=== PATIENT | male | born 1980 | race Hispanic/Latino ===

== ENCOUNTER 2022-01-19 13:08 | Emergency (ER) | payer OTHER, SELFPAY ==
--- OUTSIDE RECORDS SUMMARY | 2022-01-19 13:10 | XMS REPORT | Continuity of Care Document ---
:1980 Author Organization [facility] t Address [address] [place] [address] Care Team Providers Name Role Phone Unknown, Attending Attending Clinician Unavailable Problems This patient has no known problems. Allergies, Adverse Reactions, Alerts This patient has no known allergies or adverse reactions. Social History Social Habit Start Date Stop Date Quantity Comments Source Sex Assigned At [facility] Smoking Status Start Date Stop Date Source Unknown if ever smoked [facility] Medications This patient has no known medications. Procedures This patient has no known procedures. Encounters Start End Encounter Admission Attending Care Care Encounter Source Date/Time Date/Time Type Type Clinicians Facility Department ID 2019-01-09 2019-01-09 Emergency Unknown, [facility] [id number] [facility] 22:32:19 22:59:00 Attending Paige [id number] [facility] [id number] [facility] [id number] [place] [id number] Branch Results This patient has no known results.
[2022-01-19 14:39] LABS: Absolute Lymphocytes (CBC) 0.6 K/uL (0.7-4.9); Hematocrit 49.9 % (39.6-49.0); Lymphocytes % 4.6 % (15.3-44.8); MPV 9.8 fL (7.6-11.3); RBC Red Blood Cell Count 5.73 M/uL (4.33-5.43)
[2022-01-19 14:51] LABS: Potassium 4.5 mmol/L (3.5-5.1)
[2022-01-19 15:23] LABS: Urine Blood Negative (Negative); Urine Glucose Negative (Negative); Urine Protein 2+ (Negative)
--- NOTE | 2022-01-19 15:54 | RAD REPORT ---
EXAM DESCRIPTION: RAD - Chest Single View - 01/19/2022 3:24 pm CLINICAL HISTORY: DYSPNEA COMPARISON: Two view chest 09/20/2016 TECHNIQUE: AP portable chest image was obtained 01/19/2022 3:24 pm . FINDINGS: Lungs are clear. Heart and vasculature are normal. No measurable pleural effusion and no p neumothorax. No acute bony abnormality seen. No acute aortic findings suspected. IMPRESSION: No acute cardiopulmonary process. No significant change from comparison study.
--- NOTE | 2022-01-19 16:54 | EDPHYS ---
Physician Documentation [facility] Name: Jae Covarrubias Age: 41 yrs Sex: Male : 1980 Arrival Date: 01/19/2022 Time: 13:09 Bed 18 Private MD: ED Physician Jasper Tovar HPI: 01/19 23:29 This 41 yrs old Male presents to ER via EMS with complaints of Heat Exposure. kb 23:29 The patient presents with dizziness, feeling faint. Onset: The symptoms/episode kb began/occurred just prior to arrival. Context: occurred outdoors, occurred while the patient was working, just prior to the episode the patient experienced no apparent symptoms. Modifying factors: The symptoms are alleviated by nothing, the symptoms are aggravated by nothing. Associated signs and symptoms: Pertinent positives: near-syncope, shortness of breath. Severity of symptoms: At their worst the symptoms were mild in the emergency department the symptoms are unchanged. Patient's baseline: Neuro: alert and fully oriented, Motor: no deficits, Ambulation: walks without assistance, Speech: normal. The patient has not experienced similar symptoms in the past. The patient has not recently seen a physician. Patient states he was outside working in got overheated. Started having dizziness and shortness of breath felt faint. Went inside to cool down EMS reports patient was pale upon their arrival but improved after rest cool environment and IV fluids.. Historical: - Allergies: 13:21 No Known Allergies; jg9 - PMHx: 13:21 Gout; jg9 - Immunization history:: Adult Immunizations not up to date. - Social history:: Smoking status: Patient reports the use of cigarette tobacco products, denies chronic smoking, but will smoke occasionally. ROS: 23:27 Constitutional: Negative for fever, chills, and weight loss. kb 23:27 Respiratory: Positive for shortness of breath, Negative for cough, dyspnea on exertion, hemoptysis, orthopnea, pleurisy, sputum production, wheezing. 23:27 Neuro: Positive for dizziness, near syncope. 23:27 All other systems are negative. Exam: 14:01 Constitutional: This is a well developed, well nourished patient who is awake, alert, kb and in no acute distress. Head/Face: Normocephalic, atraumatic. ENT: Moist Mucous membranes Cardiovascular: Regular rate and rhythm with a normal S1 and S2. No gallops, murmurs, or rubs. No pulse deficits. Respiratory: Respirations even and unlabored. No increased work of breathing. Talking in full sentences Abdomen/GI: Soft, non-tender. No distention Skin: Warm, dry with normal turgor. Normal color. MS/ Extremity: Pulses equal, no cyanosis. Neurovascular intact. Full, normal range of motion. Neuro: Awake and alert, GCS 15, oriented to person, place, time, and situation. Moves all extremities. Normal gait. Psych: Awake, alert, with orientation to person, place and time. Behavior, mood, and affect are within normal limits. 14:01 ECG was reviewed by the Attending Physician. Vital Signs: 13:05 BP 143 / 90; Pulse 94; Resp 17 S; Temp 98.8; Pulse Ox 97% ; Weight 95.25 kg; Height 6 jg9 ft. 1 in. (185.42 cm) (R); Pain 0/10; 14:00 BP 138 / 97; Pulse 100; Resp 17 S; Pulse Ox 96% ; jg9 15:00 BP 150 / 97; Pulse 99; Resp 16 S; Pulse Ox 97% on R/A; j9 16:00 BP 158 / 103; Pulse 99; Resp 17 S; Pulse Ox 96% ; j9 17:00 BP 155 / 95; Pulse 98; Resp 17 S; Pulse Ox 95% on R/A; jg9 13:05 Body Mass Index 27.71 (95.25 kg, 185.42 cm) 9 MDM: 13:30 Patient medically screened. kb 23:06 Data reviewed: vital signs, nurses notes. Data interpreted: Pulse oximetry: on room air kb is 95 %. Interpretation: normal. Counseling: I had a detailed discussion with the patient and/or guardian regarding: the historical points, exam findings, and any diagnostic results supporting the discharge/admit diagnosis, lab results, the need for outpatient follow up, a family practitioner, to return to the emergency department if symptoms worsen or persist or if there are any questions or concerns that arise at home. 23:27 ED course: Patient is feeling better after getting into cool environment, resting and kb receiving IV fluids.. 01/19 13:34 Order name: CBC with Diff; Complete Time: 14:53 kb 01/19 13:34 Order name: Basic Metabolic Panel; Complete Time: 14:53 kb 01/19 13:34 Order name: CPK; Complete Time: 14:53 kb 01/19 14:53 Order name: Chest Single View XRAY; Complete Time: 16:23 kb 01/19 14:54 Order name: COVID-19 SARS RT PCR (Document "Date of Onset" if Symptomatic); Complete kb Time: 16:27 01/19 15:23 Order name: Urine Dipstick-Ancillary; Complete Time: 15:24 EDMS 01/19 13:34 Order name: IV Start; Complete Time: 13:39 kb 01/19 13:34 Order name: Urine Dipstick-Ancillary (obtain specimen); Complete Time: 15:38 kb 01/19 13:39 Order name: EKG - Nurse/Tech; Complete Time: 13:39 jg9 EC:01 Rate is 103 beats/min. Rhythm is regular. Left axis deviation noted. NC interval is kb normal at 164 msec. QRS interval is normal at 86 msec. QT interval is normal at 437 msec. Administered Medications: 13:41 Drug: NS 0.9% 1000 ml Route: IV; Rate: 1000 ml; Site: right forearm; jg9 14:33 Follow up: IV Status: Completed infusion; IV Intake: 1000ml jg9 Disposition: 01/20 09:06 Co-signature as Attending Physician, Jasper Tovar MD I agree with the assessment and kdr plan of care. Disposition Summary: 01/19/22 16:53 Discharge Ordered Location: Home kb Condition: Stable kb Diagnosis - Exposure to excessive natural heat, initial encounter kb - Heat exhaustion, unspecified kb Followup: kb - With: Emergency Department - When: As needed - Reason: Worsening of condition Followup: kb - With: Private Physician - When: 2 - 3 days - Reason: Recheck today's complaints, Continuance of care, Re-evaluation by your physician Discharge Instructions: - Discharge Summary Sheet kb - Heat Exhaustion kb - Preventing Heat Exhaustion, Adult kb Forms: - Medication Reconciliation Form kb - Thank You Letter kb - Antibiotic Education kb - Prescription Opioid Use kb Signatures: Dispatcher [employer] EDAR Cindy May FNP-C FNP-Jasper Cerda MD MD kdr Gilmore, Jennifer, RN RN jg9 Corrections: (The following items were deleted from the chart) 01/19 23:29 23:27 Neuro: Positive for near syncope, kb kb
--- NOTE | 2022-01-19 16:54 | ER ---
Nurse's Notes [facility] Name: Jae Covarrubias Age: 41 yrs Sex: Male : 1980 Arrival Date: 01/19/2022 Time: 13:09 Bed 18 Private MD: Diagnosis: Exposure to excessive natural heat, initial encounter;Heat exhaustion, unspecified Presentation: 01/19 13:05 Chief complaint: EMS states: Patient at work on a [employer] lift when he started to feel jg9 dizzy so he was assisted off the lift and moved into and called EMS. EMS reports patient ws white as a ghost, patient reported sob prior to onset of symptoms. EMS gave 500 mL bolus-patient vs improved. Patient at ED reports he is feeling better. Coronavirus screen: Vaccine status: Patient reports being unvaccinated. Ebola Screen: Patient negative for fever greater than or equal to 101.5 degrees Fahrenheit, and additional compatible Ebola Virus Disease symptoms Patient denies exposure to infectious person. Patient denies travel to an Ebola-affected area in the 21 days before illness onset. Initial Sepsis Screen: Does the patient meet any 2 criteria? No. Patient's initial sepsis screen is negative. Does the patient have a suspected source of infection? No. Patient's initial sepsis screen is negative. Risk Assessment: Do you want to hurt yourself or someone else? Patient reports no desire to harm self or others. Onset of symptoms was January 19, 2022. 13:05 Method Of Arrival: EMS: [facility] jg9 13:05 Acuity: MICHELLE 3 jg9 Triage Assessment: 13:10 General: Appears distressed, uncomfortable, Behavior is calm, cooperative. Pain: Denies jg9 pain. Derm: Skin is intact, Skin is pale, Skin temperature is warm. Historical: - Allergies: 13:21 No Known Allergies; jg9 - PMHx: 13:21 Gout; jg9 - Immunization history:: Adult Immunizations not up to date. - Social history:: Smoking status: Patient reports the use of cigarette tobacco products, denies chronic smoking, but will smoke occasionally. Screenin:22 Abuse screen: Denies threats or abuse. Denies injuries from another. Nutritional jg9 screening: No deficits noted. Tuberculosis screening: No symptoms or risk factors identified. Fall Risk None identified. Assessment: 15:52 Reassessment: Patient and/or family updated on plan of care and expected duration. Pain jg9 level reassessed. Patient states feeling better. Patient states symptoms have improved. Vital Signs: 13:05 BP 143 / 90; Pulse 94; Resp 17 S; Temp 98.8; Pulse Ox 97% ; Weight 95.25 kg; Height 6 jg9 ft. 1 in. (185.42 cm) (R); Pain 0/10; 14:00 BP 138 / 97; Pulse 100; Resp 17 S; Pulse Ox 96% ; jg9 15:00 BP 150 / 97; Pulse 99; Resp 16 S; Pulse Ox 97% on R/A; jg9 16:00 BP 158 / 103; Pulse 99; Resp 17 S; Pulse Ox 96% ; jg9 17:00 BP 155 / 95; Pulse 98; Resp 17 S; Pulse Ox 95% on R/A; jg9 13:05 Body Mass Index 27.71 (95.25 kg, 185.42 cm) jg9 ED Course: 13:09 Patient arrived in ED. eb 13:14 Rachel Carrera, RN is Primary Nurse. jg9 13:21 Triage completed. jg9 13:23 Arm band placed on right wrist. jg9 13:23 Patient has correct armband on for positive identification. Bed in low position. Call jg9 light in reach. Side rails up X 1. 13:30 Cindy May FNP-C is [facility]. kb 13:30 Jaspre Tovar MD is Attending Physician. kb 13:39 Maintain EMS IV. Dressing intact. Good blood return noted. Site clean \T\ dry. Gauge \T\ jg 9 site: 18 r ac. 15:26 Chest Single View XRAY In Process Unspecified. EDMS 17:07 No provider procedures requiring assistance completed. jg9 17:07 IV discontinued. jg9 Administered Medications: 13:41 Drug: NS 0.9% 1000 ml Route: IV; Rate: 1000 ml; Site: right forearm; jg9 14:33 Follow up: IV Status: Completed infusion; IV Intake: 1000ml jg9 Medication: 17:07 VIS not applicable for this client. jg9 Intake: 14:33 IV: 1000ml; Total: 1000ml. jg9 Outcome: 16:53 Discharge ordered by MD. aguilar 17:07 Discharged to home ambulatory. jg9 17:07 Condition: improved 17:07 Discharge instructions given to patient, Instructed on discharge instructions, follow up and referral plans. Demonstrated understanding of instructions, follow-up care. 17:07 Patient left the ED. jg9 Signatures: Dispatcher [employer] EDCindy King, [employer] [employer]-Lucinda Lee Jennifer, RN RN jg9 Corrections: (The following items were deleted from the chart) 15:52 15:00 BP 137 / 97; Pulse 99bpm; Resp 16bpm; Spontaneous; Pulse Ox 99% RA; jg9 jg9
[2022-01-19 18:53] VITALS: BP 155/95; O2SAT 95
--- NOTE | 2022-01-20 15:09 | EKG ---
Test Date: 2022-01-19 Test Time: 13:27:51 Certified Medication Technician: [facility]ON MEASUREMENT RESULTS: Intervals: Rate: 103 DC: 164 QRSD: 86 QT: 334 QTc: 437 [place]: P: 50 DC: 164 QRS: -5 T: 49 INTERPRETIVE STATEMENTS: Sinus tachycardia Anterior infarct, age undetermined Abnormal ECG No previous ECG available for comparison Electronically Signed On 01-20-22 15:08:07 CDT by Zheng Sexton
== END 2022-01-19 17:07 | disposition home or self-care (01) ==
LOC: ER 13:08
DX: T67.5XXA Heat exhaustion, unspecified, initial encounter (principal); X30.XXXA Exposure to excessive natural heat, initial encounter; F17.210 Nicotine dependence, cigarettes, uncomplicated; Z20.822 Contact with and (suspected) exposure to COVID-19
CPT/HCPCS: 36415; 71045; 80048; 81003; 82550; 85025; 93005; 96360; 99284; U0003